=== PATIENT | female | born 1990 | race Two or more races ===

== ENCOUNTER → 2025-01-19 | Outpatient (CLI) | payer MEDICAID, SELFPAY ==
--- NOTE | 2025-01-19 17:05 | XR_ITS ---
Examination: Complete OB ultrasound, less than 14 weeks, transabdominal Date and time of exam: January 19, 2025, 1717 hours INDICATIONS: Positive blood test for Technique: Obstetrical ultrasound images less than 14 weeks performed via transabdominal imaging Findings: Uterus 7.5 cm, pole 0.5 cm corresponds to 6 weeks 2 days gestational age No cardiac motion Right ovary 3.4 cm arterial flow. Left ovary 2.2 cm arterial flow IMPRESSION: Intrauterine gestation corresponding to 6 weeks 2 days gestational age No cardiac motion Recommend transvaginal pelvic sonography follow-up to exclude demise
== END | disposition home or self-care (01) ==
PROVIDERS: PCP Nurse Practitioner; Referring Provider Nurse Practitioner; Visit Provider Nurse Practitioner
DX: Z32.01 Encounter for pregnancy test, result positive (principal)
CPT/HCPCS: 76801